=== PATIENT | male | born 1950 | race African-American/Black ===

== ENCOUNTER 2016-04-05 02:16 | Emergency (ER) | payer MEDICARE, MEDICAID ==
[~2016-04-05] VITALS: Ht 167.6 cm; Wt 63.5 kg
[2016-04-05 02:30] VITALS: BP 164/110
[2016-04-05] MEDS ORDERED: Morphine Sulfate 4mg/ml Inj IVP ONE (02:45)
[2016-04-05 02:55] LABS: APPEARANCE,URINE CLEAR; BASOPHILS % (AUTO) 0.7 % (0.0-2.0); EOSINOPHILS % (AUTO) 0.4 % (0.0-3.0); KETONES,URINE NEGATIVE (NEGATIVE); LEUKOCYTE ESTERASE ,URINE NEGATIVE (NEGATIVE); LYMPHOCYTES % (AUTO) 11.1 % (20.0-45.0); MEAN CORPUSCULAR HEMOGLOBIN 26.7 PG (27.0-31.0); MEAN CORPUSCULAR VOLUME 86 FL (80-99); MEAN PLATELET VOLUME 6.7 FL (6.5-10.1); MONOCYTES % (AUTO) 6.8 % (1.0-10.0); NEUTROPHILS % (AUTO) 80.9 % (45.0-75.0); NITRITE,URINE NEGATIVE (NEGATIVE); PH,URINE 6 (4.5-8.0); PLATELET COUNT 266 K/UL (150-450); PROTEIN,URINE 3+ (NEGATIVE); RED BLOOD COUNT 5.33 M/UL (4.70-6.10); RED CELL DISTRIBUTION WIDTH 15.7 % (11.6-14.8); UROBILINOGEN,URINE NORMAL MG/DL (0.0-1.0); WHITE BLOOD COUNT 11.5 K/UL (4.8-10.8)
[2016-04-05 03:13] LABS: ALANINE AMINOTRANSFERASE 57 U/L (3-41); ALBUMIN/GLOBULIN RATIO 1.1 (1.0-2.7); ANION GAP 20 (5-15); ASPARTATE AMINO TRANSFERASE 79 U/L (5-40); CALCIUM 9.7 mg/dL (8.6-10.2); CARBON DIOXIDE 25 mEQ/L (20-30); CHLORIDE 96 mEQ/L (98-107); CREATININE 0.9 mg/dL (0.7-1.2); GLOMERULAR FILTRATION RATE > 60 mL/min (>60); HEMOLYSIS 3; LIPASE 29 U/L (< 60); SODIUM 141 mEQ/L (135-145); TOTAL PROTEIN 8.5 g/dL (6.6-8.7)
[2016-04-05 03:19] LABS: BACTERIA,URINE OCCASIONAL /HPF; FINE GRANULAR CASTS,URINE 0-2 /LPF; MUCUS,URINE FEW /LPF (NONE/OCC); SQUAMOUS EPITHELIAL CELL,UR OCCASIONAL /LPF (NONE/OCC); WBC,URINE 0-2 /HPF (0 - 0)
--- NOTE | 2016-04-05 03:48 | Emergency Room Report ---
History of Present Illness General Chief Complaint: Abdominal Pain Source: Patient Present Illness HPI 65 YO M presents with pain to testicles for "many months." States he was at [facility] recently, they did a "CT scan and told me I have something wrong with my gallbladder." Denies nausea/vomiting, diarrhea, fever/chills. No previous abd surgery. Denies dysuria, polyuria. Smokes, drinks ETOH daily. ? Homelessness. BIBEMS from gas station. Denies other PMHx. Allergies: Coded Allergies: IBUPROFEN (Unverified Allergy, Unknown, 04/05/16) Patient History Past Medical History: none Past Surgical History: none Pertinent Family History: none Social History: Reports: alcohol use, smoking, Denies: drug use Immunizations: UTD Reviewed Nursing Documentation: PMH: Agreed, PSxH: Agreed Nursing Documentation-PMH Past Medical History: No History, Except For Hx Hypertension: Yes Review of Systems All Other Systems: negative except mentioned in HPI Physical Exam Vital Signs Date Time Temp Pulse Resp B/P Pulse Ox O2 Delivery O2 Flow Rate FiO2 04/05/16 02:08 98.2 76 16 180/100 99 Room Air Sp02 EP Interpretation: reviewed, normal General Appearance: normal inspection, well appearing, no apparent distress, alert Head: normocephalic, atraumatic Eyes: bilateral eye EOMI, bilateral eye PERRL ENT: normal ENT inspection, hearing grossly normal, normal voice Neck: normal inspection, full range of motion, supple, no bony tend Respiratory: normal inspection, lungs clear, normal breath sounds, no respiratory distress, no retraction, no wheezing Cardiovascular #1: regular rate, rhythm, no edema Gastrointestinal: normal inspection, normal bowel sounds, non tender, soft, no mass, no guarding, no hernia Genitourinary: no CVA tenderness, penis normal, scrotum normal, other - No epidymal ttp. No masses palpated on testicles. 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 VSS. Afebrile. Non focal exam to abdomen, testicles, inguinal hernia Soft, NT/ND. No palpable hernias No testicular masses ?malingering Labs: Mild Leuks. Lipase normal. H&H stable. No sign of infection in UA. Mild LFT elevation. Bili is normal Patient feels better s/p IV morphine Tolerating PO Serial abd exam continues to be non-focal; Total bili is normal. Patient has no TTP to RUQ, I doubt acute manuela at this time. Low suspicion for additional bacterial or surgical process DC Rhythm Strip Diag. Results EP Interpretation: yes Rate: 86 Rhythm: NSR, no PVC's, no ectopy Last Vital Signs Date Time Temp Pulse Resp B/P Pulse Ox O2 Delivery O2 Flow Rate FiO2 04/05/16 02:30 98.2 69 17 164/110 100 Room Air Status: improved Disposition: HOME, SELF-CARE Referrals: NOT CHOSEN IPA/,REFERRING (PCP) BAYRON ROMANO M.D. Apr 05, 2016 03:48
[2016-04-05 03:50] VITALS: BP 146/85
[2016-04-05 04:08] VITALS: BP 146/85
== END 2016-04-05 04:00 | disposition home or self-care (01) ==
LOC: EDBD 02:16 → EMR 02:48
DX: R10.9 Unspecified abdominal pain (principal); I10 Essential (primary) hypertension; F17.200 Nicotine dependence, unspecified, uncomplicated; Z88.6 Allergy status to analgesic agent
CPT/HCPCS: 36415; 80053; 81003; 83690; 85025; 96374; 96375; 99284; J2270